=== PATIENT | female | born 1960 | race Caucasian/White ===

== ENCOUNTER 2020-07-09 08:00 | Outpatient (CLI) | payer SELFPAY | END 2020-07-09 23:59 | disposition home or self-care (01) | LOC: LAB.S 08:00 | PROVIDERS: ATTEND Physician Assistant Medical | DX: L03.115 Cellulitis of right lower limb (principal) | CPT/HCPCS: 87070; 87181; 87205 ==

== ENCOUNTER 2020-07-13 08:00 | Outpatient (CLI) | payer SELFPAY ==
--- NOTE | 2020-07-13 17:15 | XRAY Report ---
PROCEDURE: Chest 2 View X-Ray INDICATIONS: COUGH TECHNIQUE: 2 view(s) of the chest. COMPARISON: None. FINDINGS: Surgical changes and devices: None. Lungs and pleura: No pleural effusions or pneumothorax. Lungs are clear. Mediastinum: Mediastinal contours are normal. Heart size is at the upper limits of size. Bones and chest wall: No suspicious bony abnormalities. Soft tissues appear unremarkable. IMPRESSION: No acute pulmonary process. Reviewed by: Luana Brady MD on 07/13/2020 5:13 PM PDT Approved by: Luana Brady MD on 07/13/2020 5:13 PM PDT Station ID: [id number]
[2020-07-13 20:22] LABS: BASOPHILS # (AUTO) 0.1 10^3/uL (0.0-0.1); BASOPHILS % (AUTO) 0.7 %; EOSINOPHILS # (AUTO) 0.1 10^3/uL (0.0-0.7); HCT - HEMATOCRIT 44.5 % (37.0-47.0); HGB - HEMOGLOBIN 13.9 g/dL (12.0-16.0); LYMPHOCYTES # (AUTO) 2.5 10^3/uL (1.5-3.5); LYMPHOCYTES % (AUTO) 20.9 %; MEAN CORPUSCULAR HEMOGLOBIN 28.3 pg (27.0-31.0); MEAN CORPUSCULAR HGB CONC 31.2 g/dL (32.0-36.0); MEAN CORPUSCULAR VOLUME 90.6 fL (81.0-99.0); MEAN PLATELET VOLUME 12.7 fL (7.9-10.8); MONOCYTES # (AUTO) 1.1 10^3/uL (0.0-1.0); MONOCYTES % (AUTO) 9.1 %; NEUTROPHILS # (AUTO) 8.1 10^3/uL (1.5-6.6); NEUTROPHILS % (AUTO) 67.6 %; PLT - PLATELET COUNT 307 10^3/uL (130-450); RED BLOOD COUNT 4.91 10^6/uL (4.20-5.40); RED CELL DISTRIBUTION WIDTH 14.6 % (12.0-15.0); WHITE BLOOD COUNT 11.9 x10^3/uL (4.8-10.8)
[2020-07-13 20:34] LABS: ALBUMIN 4.4 g/dL (3.2-5.5); ALBUMIN/GLOBULIN RATIO 1.2 (1.0-2.2); BILIRUBIN,TOTAL 0.6 mg/dL (0.2-1.0); CALCIUM 9.1 mg/dL (8.5-10.3); CREATININE 1.2 mg/dL (0.4-1.0); POTASSIUM 4.7 mmol/L (3.5-5.0)
== END 2020-07-13 23:59 | disposition home or self-care (01) ==
LOC: DI.S 08:00
PROVIDERS: ATTEND Physician Assistant Medical
DX: R05 Cough (principal); R09.89 Other specified symptoms and signs involving the circulatory and respiratory systems; R11.2 Nausea with vomiting, unspecified; Z20.822 Contact with and (suspected) exposure to COVID-19
CPT/HCPCS: 36415; 80053; 85025; 87275; 87276; 87430

== ENCOUNTER 2020-07-14 13:32 | Emergency (ER) | payer SELFPAY ==
--- OUTSIDE RECORDS SUMMARY | 2020-07-14 13:35 | EXTERNAL MEDICAL SUMMARY RPT | Continuity of Care Document ---
:1960 Demographics Phone Unavailable Preferred Language Unknown Marital Status Unknown Taoism Affiliation Unknown Race Unknown Ethnic Group Unknown Author Organization [place] Address [address] [id number] Phone Care Team Providers Name Role Phone Dedrick Unavailable Unavailable PA-C Unavailable Unavailable PA-C Unavailable Unavailable Medications date description facility [id number] [facility] [id number] [facility] [id number] [facility] [id number] [facility] [id number] METFORMIN [facility] [id number] [facility] [id number] SULFAMETHOXAZOLE-TRIMETHOPRIM [facility] [id number] TRIAMCINOLONE ACETONIDE [facility] [id number] MUPIROCIN [facility] [id number] SULFAMETHOXAZOLE-TRIMETHOPRIM [facility] [id number] METFORMIN HCL [facility] [id number] TRIAMCINOLONE ACETONIDE [facility] L[facility] [id number] L[facility]OPRIL [facility] [id number] M[facility]IROCIN [facility] [id number] METFORMIN HCL [facility] [id number] [facility]INOPRIL [facility] [id number] SULFAMETHOXAZOLE-TRIMETHOPRIM [facility] [id number] TRIAMCINOLONE ACETONIDE [facility] [id number] MUPIROCIN [facility] [id number] SULFAMETHOXAZOLE-TRIMETHOPRIM [facility] [id number] METFORMIN HCL [facility] [id number] TRIAMCINOLONE ACETONIDE [facility] [id number] L[facility]INOPRIL [facility] Care & Ancillary Services Bl [id number] MUPIROCIN [facility] & Anc[facility] Services L[facility] [id number] METFORMIN HCL [facility] L[facility] [id number] LISINOPRIL [facility] & Anc[facility] Services Bl [id number] SULFAMETHOXAZOLE-TRIMETHOPRIM [facility] [id number] TRIAMCINOLONE ACETONIDE [facility] [id number] MUPIROCIN [facility] & Anc[facility] Services L[place] [id number] SULFAMETHOXAZOLE-TRIMETHOPRIM [facility] & Ancillary Services Lb [id number] METFORMIN HCL [facility] Care & Ancillary Services Lb [id number] TRIAMCINOLONE ACETONIDE [facility] [id number] LISINOPRIL [facility] Care & Ancillary Services Lb [id number] MUPIROCIN [facility] Services Lb Problems date description facility [id number] X-RAY EXAM CHEST 2 VIEWS [facility] Services [facility] [id number] Viral syndrome [facility] [place] [id number] Tobacco use and exposure [facility] [place] [id number] Tobacco smoking status NHIS Walk[facility]In [facility] Primary Care & [facility]illary Services [place] [id number] Respiratory tract congestion Walk-In [facility] Primary Care & Ancillary Services [facility] [id number] Other viral agents as the cause of [facility] Primary Care & diseases classified elsewhere Ancillary Services L[facility] [id number] Other diseases of respiratory system, [facility] Primary Care & not elsewhere classified Ancillary Servi caty Lb [id number] Nausea with vomiting, unspecified [facility] [place] [id number] Influenza A & B Antigen, Rapid [facility] [place] [id number] Exercise [facility] Care & [facility] [place] [id number] Details of drug misuse behavior [facility] Services [place] 20200713 Cough [facility] [place] 20200713 COVID19 Testing [facility] [place] 20200713 COMPREHENSIVE METABOLIC PANEL [facility] [place] 20200713 CBC W/Diff/Plt [facility] Care & [facility] Services [place] 20200713 Unspecified viral infection Walk[facility] in Primary Care & Ancillary Services [place] 20200713 Other specified symptoms and signs [facility] Primary Care & involving the circulatory and Ancillary Services Lb respiratory systems 20200713 Nausea with vomiting [facility] Care & Ancillary Services [place] 20200713 Nausea and vomiting [facility] Care & Ancillary Services [place] 20200713 Current every day smoker [facility] Care & Ancillary Services [place] 20200713 Alcohol use [facility] Care [facility] Services [place] 20200713 Alcohol intake [facility] [place] [id number] Tobacco use disorder [facility] Care & Ancillary Services [place] 20200709 Nicotine dependence [facility] Care & Ancillary Services [place] 20200709 Current every day smoker [facility] Primary Care & Ancillary Services [place] [id number] Chronic eczema [facility] Services [place] 20200709 Tobacco use and exposure [facility] [place] [id number] Exercise [facility] Care & Anc[facility] Services [place] 20200709 Tobacco smoking status NHIS Walk[facility] Primary Care & Ancillary Services [place] 20200709 Other atopic dermatitis [facility] & [facility] Services [place] 20200709 Nicotine dependence, unspecified, [facility] Primary Care & uncomplicated Ancillary Services [place] 20200709 Cellulitis of right lower limb [facility] [place] 20200709 CULTURE WOUND [facility] Care & Ancillary Services [place] Procedures date description facility 20200713 Influenza A & B Antigen, Rapid [facility] 20200713 COVID19 Testing [facility] Care & Anc[facility] Services L[facility] 20200713 CBC W/Diff/Plt Walk[facility]In [facility] & Ancillary Services Lb [id number] COMPREHENSIVE METABOLIC PANEL Walk-In [facility] Primary Care & Ancillary Services Lb [id number] Influenza A & B Antigen, Rapid Walk[facility]In [facility] Primary Care & Ancillary Services L[place] [id number] COVID19 Testing Walk[facility]In [facility] & Ancillary Services L[place] [id number] CBC W/Diff/Plt Walk[facility] & Ancillary Services Lb [id number] COMPREHENSIVE METABOLIC PANEL Walk-In [facility] Primary Care & Ancillary Services Lb Results test status date ordered by attending specimen len e urea_nitrogen_blood unknown [id number] unknown unknown unk nown Erythrocytes_volume_in unknown 23235009 unknown unknown unknown _Blood_by_Automated_cou nt Erythrocyte_distributi unknown 53365063 unknown unknown unknown on_width_Ratio_by_Autom ated_count MCV_Entitic_volume_by_ unknown 56332362 unknown unknown unknown Automated_count MCH_Entitic_mass_by_Au unknown 50031484 unknown unknown unknown tomated_count Platelets_volume_in_Bl unknown 16626972 unknown unknown unknown ood_by_Automated_count Platelet_mean_volume_E unknown 85105914 unknown unknown unknown ntitic_volume_in_Blood_ by_[place] neutrophil_count_blood unknown 20999035 unknown unknown unknown monocyte_count_blood unknown 15427435 unknown unknown un known lymphocyte_count_blood unknown 64545385 unknown unknown unknown Hemoglobin_Mass_volume unknown 34570958 unknown unknown unknown _in_Blood eosinophil_count_blood unknown 50263705 unknown unknown unknown Basophils_volume_in_Bl unknown 84697123 unknown unknown unknown ood_by_Manual_count leukocyte_count_blood unknown 62320242 unknown unknown u nknown erythrocyte_RBC_count unknown 19886002 unknown unknown u nknown Leukocytes_volume_in_B unknown 05805097 unknown unknown unknown lood_by_Automated_count Glomerular_Filtration_ unknown 26232076 unknown unknown unknown rate platelet_count unknown 05922622 unknown unknown unknown hemoglobin_blood unknown 62446516 unknown unknown unknow n hematocrit_blood unknown 09857985 unknown unknown unknow n potassium_blood unknown 36411994 unknown unknown unknown Glomerular_filtration_r unknown 23685059 unknown unknown unknown ate_1.73_sq_M.predicted _among_non-blacks_Volum e_Rate_Area_in_Serum_Pl asma_or_Blood_by_Creati nine-based_formula_MDRD _ Hematocrit_Volume_Frac unknown 50373708 unknown unknown unknown tion_of_Blood_by_Automa ted_count bilirubin_serum_total unknown 43620322 unknown unknown u nknown alanine_aminotransfera unknown 67777432 unknown unknown unknown se_SGPT_serum carbon_dioxide_serum_t unknown 69250578 unknown unknown unknown otal aspartate_aminotransfe unknown 52946254 unknown unknown unknown rase_SGOT_serum protein_total_serum unknown 51984715 unknown unknown unk nown blood_glucose unknown 85706380 unknown unknown unknown potassium_blood unknown 01844671 unknown unknown unknown mean_corpuscular_volum unknown 61382592 unknown unknown unknown e_RBC Urea_nitrogen_Mass_vol unknown 40037181 unknown unknown unknown ume_in_Serum_or_Plasma globulin_serum unknown 18167728 unknown unknown unknown alkaline_phosphatase_s unknown 92635427 unknown unknown unknown oc Sodium_Moles_volume_in unknown 40883366 unknown unknown unknown _Serum_or_Plasma Protein_Mass_volume_in unknown 94332768 unknown unknown unknown _Serum_or_Plasma eosinophil_count_blood unknown 09870721 unknown unknown unknown anion_gap_serum unknown 55657909 unknown unknown unknown mean_platelet_volume unknown 52517716 unknown unknown un known basophil_count_blood unknown 27494515 unknown unknown un known monocyte_count_blood unknown 69058002 unknown unknown un known lymphocyte_count_blood unknown 52473736 unknown unknown unknown neutrophil_count_blood unknown 45761461 unknown unknown unknown Glucose_Mass_volume_in unknown 51641055 unknown unknown unknown _Serum_or_Plasma Globulin_Mass_volume_i unknown 20592581 unknown unknown unknown n_Serum Creatinine_Mass_volume unknown 93899362 unknown unknown unknown _in_Serum_or_Plasma Chloride_Moles_volume_ unknown 40755715 unknown unknown unknown in_Serum_or_Plasma carbon_dioxide_serum_t unknown 10698466 unknown unknown unknown otal Calcium_Moles_volume_i unknown 17025130 unknown unknown unknown n_Serum_or_Plasma albumin_serum unknown 60463158 unknown unknown unknown Bilirubin.total_Mass_v unknown 26077847 unknown unknown unknown olume_in_Serum_or_Plasm a Aspartate_aminotransfe unknown 73333238 unknown unknown unknown rase_Enzymatic_activity _volume_in_Serum_or_Pla sma Anion_gap_4_in_Serum_o unknown 34236827 unknown unknown unknown r_Plasma creatinine_serum unknown 78984213 unknown unknown unknow n Alkaline_phosphatase_E unknown 34424777 unknown unknown unknown nzymatic_activity_volum e_in_Blood Albumin_Globulin_Mass_ unknown 59343659 unknown unknown unknown Ratio_in_Serum_or_Plasm a Albumin_Mass_volume_in unknown 17139561 unknown unknown unknown _Serum_or_Plasma Alanine_aminotransfera unknown 01404873 unknown unknown unknown se_Enzymatic_activity_v olume_in_Serum_or_Plasm a mean_corpuscular_hemog unknown 48666774 unknown unknown unknown lobin_concentration_rbc sodium_serum unknown 86507530 unknown unknown unknown albumin_globulin_ratio unknown 92248397 unknown unknown unknown _serum chloride_serum unknown 97267921 unknown unknown unknown calcium_serum unknown 88389531 unknown unknown unknown mean_corpuscular_hemog unknown 97707241 unknown unknown unknown lobin_RBC red_blood_cell_distrib unknown 09720814 unknown unknown unknown ution_width T unknown 28571091 unknown unknown unknown T unknown 00209774 unknown unknown unknown T unknown 63719565 unknown unknown unknown T unknown 04730786 unknown unknown unknown T unknown 01422250 unknown unknown unknown T unknown 90775498 unknown unknown unknown NEUTROPHILS_AUTO_ unknown 97883365 unknown unknown unkno wn T unknown 34324650 unknown unknown unknown T unknown 95684351 unknown unknown unknown T unknown 98882862 unknown unknown unknown MONOCYTES_AUTO_ unknown 73335856 unknown unknown unknown T unknown 77657652 unknown unknown unknown T unknown 93317748 unknown unknown unknown T unknown 58921058 unknown unknown unknown T unknown 48285377 unknown unknown unknown LYMPHOCYTES_AUTO_ unknown 75666780 unknown unknown unkno wn T unknown 30387805 unknown unknown unknown T unknown 43305708 unknown unknown unknown T unknown 02601583 unknown unknown unknown T unknown 47503632 unknown unknown unknown T unknown 34043523 unknown unknown unknown T unknown 68965047 unknown unknown unknown T unknown 19302865 unknown unknown unknown GFR_-_MDRD unknown 51000757 unknown unknown unknown T unknown 26021943 unknown unknown unknown EOSINOPHILS_AUTO_ unknown 12458744 unknown unknown unkno wn T unknown 83197201 unknown unknown unknown T unknown 29211228 unknown unknown unknown T unknown 09006520 unknown unknown unknown T unknown 66009927 unknown unknown unknown T unknown 29064223 unknown unknown unknown T unknown 20752193 unknown unknown unknown BILIRUBIN_TOTAL unknown 38924036 unknown unknown unknown BASOPHILS_AUTO_ unknown 60198611 unknown unknown unknown T unknown 53531234 unknown unknown unknown T unknown 52521596 unknown unknown unknown T unknown 91841138 unknown unknown unknown T unknown 79839737 unknown unknown unknown ALT_ALANINE_AMINOTRANS unknown 92211364 unknown unknown unknown FERASE ALKALINE_PHOSPHATASE unknown 05583259 unknown unknown un known T unknown 30983777 unknown unknown unknown T unknown 04991632 unknown unknown unknown ALBUMIN_GLOBULIN_RATIO unknown 72576778 unknown unknown unknown facility observation status value reference units lab code abn ormal line range notes [facility] urea_nitroge unknown 29 unknown mg/dL _9 unknow n unknown Clinic n_blood Primary Care & Ancillary Services Lb [facility] Erythrocytes unknown 4.91 unknown _789-8 unknow n unknown Clinic _volume_in_Bl 10 6/UL Primary ood_by_Automa Care & ted_count Ancillary Services Lb Walk-In Erythrocyte_ unknown 14.6 unknown % _788-0 unknow n unknown Clinic distribution_ Primary width_Ratio_b Care & y_Automated_c Ancillary ount Services Lb Walk-In MCV_Entitic_ unknown 90.6 unknown fL _787-2 unknow n unknown Clinic volume_by_Aut Primary omated_count Care & Ancillary Services Lb Walk-In MCH_Entitic_ unknown 28.3 unknown pg _785-6 unknow n unknown Clinic mass_by_Autom Primary ated_count Care & Ancillary Services Lb [facility] Platelets_vo unknown 307 10 unknown _777-3 unknow n unknown Clinic lume_in_Blood 3/UL Primary _by_Automated Care & _count Ancillary Services Lb Walk-In Platelet_mea unknown 12.7 unknown fL _776-5 unknow n unknown Clinic n_volume_Enti Primary tic_volume_in Care & _Blood_by_Ree Ancillary s-[place] Services Lb Walk-In neutrophil_c unknown 8.1 10 unknown _752-6 unknow n unknown Clinic ount_blood 3/UL Primary Care & Ancillary Services Lb Walk-In monocyte_cou unknown 1.1 10 unknown _743-5 unknow n unknown Clinic nt_blood 3/UL Primary Care & Ancillary Services Lb Walk-In lymphocyte_c unknown 2.5 10 unknown _732-8 unknow n unknown Clinic ount_blood 3/UL Primary Care & Ancillary Services Lb Walk-In Hemoglobin_M unknown 13.9 unknown g/dL _718-7 unknow n unknown Clinic ass_volume_in Primary _Blood Care & Ancillary Services Lb Walk-In eosinophil_c unknown 0.1 10 unknown _712-0 unknow n unknown Clinic ount_blood 3/UL Primary Care & Ancillary Services Lb Walk-In Basophils_vo unknown 0.1 10 unknown _705-4 unknow n unknown Clinic lume_in_Blood 3/UL Primary _by_Manual_co Care & unt Ancillary Services Lb Walk-In leukocyte_co unknown 11.9 unknown _68 unknow n unknown Clinic unt_blood X10 Primary 3/UL Care & Ancillary Services Lb Walk-In erythrocyte_ unknown 4.91 unknown _67 unknow n unknown Clinic RBC_count 10 6/UL Primary Care & Ancillary Services Lb Walk-In Leukocytes_v unknown 11.9 unknown _6690-2 unkno wn unknown Clinic olume_in_Bloo X10 Primary d_by_Automate 3/UL Care & d_count Ancillary Services Lb Walk-In Glomerular_F unknown 46 unknown mL/min _66455 unknow n unknown Clinic iltration_rat Primary e Care & Ancillary Services Lb Walk-In platelet_cou unknown 307 10 unknown _66 unknow n unknown Clinic nt 3/UL Primary Care & Ancillary Services Lb Walk-In hemoglobin_b unknown 13.9 unknown g/dL _65 unknow n unknown Clinic lood Primary Care & Ancillary Services Lb Walk-In hematocrit_b unknown 44.5 unknown % _64 unknow n unknown Clinic lood Primary Care & Ancillary Services Lb Walk-In potassium_bl unknown 4.7 unknown meq/L _6298-4 unkno wn unknown Clinic ood Primary Care & Ancillary Services Lb Walk-In Glomerular_fi unknown 46 unknown mL/min _48642-3 unkn own unknown Clinic ltration_rate Primary _1.73_sq_M.pr Care & edicted_among Ancillary _non-blacks_V Services olume_Rate_Ar Bl ea_in_Serum_P lasma_or_Bloo d_by_Creatini ne-based_form ula_MDRD_ Walk-In Hematocrit_V unknown 44.5 unknown % _4544-3 unkno wn unknown Clinic olume_Fractio Primary n_of_Blood_by Care & _Automated_co Ancillary unt Services Lb Walk-In bilirubin_se unknown 0.6 unknown mg/dL _43 unknow n unknown Clinic rum_total Primary Care & Ancillary Services Lb Walk-In alanine_amin unknown 21 unknown U/L _40 unknow n unknown Clinic otransferase_ Primary SGPT_serum Care & Ancillary Services Lb Walk-In carbon_dioxi unknown 24 unknown mmol/L _3962 unknow n unknown Clinic de_serum_tota Primary l Care & Ancillary Services Lb Walk-In aspartate_am unknown 22 unknown U/L _39 unknow n unknown Clinic inotransferas Primary e_SGOT_serum Care & Ancillary Services Lb Walk-In protein_tota unknown 8.0 unknown g/dL _36 unknow n unknown Clinic l_serum Primary Care & Ancillary Services Lb Walk-In blood_glucos unknown 84 unknown mg/dL _3565 unknow n unknown Clinic e Primary Care & Ancillary Services Lb Walk-In potassium_bl unknown 4.7 unknown meq/L _3483 unknow n unknown Clinic ood Primary Care & Ancillary Services Lb Walk-[facility] mean_corpusc unknown 90.6 unknown fL _315 unknow n unknown Clinic ular_volume_R Primary BC Care & Ancillary Services Lb Walk-In Urea_nitroge unknown 29 unknown mg/dL _3094-0 unkno wn unknown Clinic n_Mass_volume Primary _in_Serum_or_ Care & Plasma Ancillary Services Lb Walk-In globulin_ser unknown 3.6 unknown _3059 unknow n unknown Clinic um Primary Care & Ancillary Services Lb Walk-In alkaline_pho unknown 68 unknown U/L _3 unknow n unknown Clinic sphatase_seru Primary m Care & Ancillary Services Lb Walk-In Sodium_Moles unknown 134 unknown mmol/L _2951-2 unkno wn unknown Clinic _volume_in_Se Primary rum_or_Plasma Care & Ancillary Services Lb Walk-In Protein_Mass unknown 8.0 unknown g/dL _2885-2 unkno wn unknown Clinic _volume_in_Se Primary rum_or_Plasma Care & Ancillary Services Lb Walk-In eosinophil_c unknown 0.1 10 unknown _285 unknow n unknown Clinic ount_blood 3/UL Primary Care & Ancillary Services Lb Walk-In anion_gap_se unknown 9.0 unknown _279 unknow n unknown Clinic rum Primary Care & Ancillary Services Lb Walk-In mean_platele unknown 12.7 unknown fL _2784 unknow n unknown Clinic t_volume Primary Care & Ancillary Services Lb Walk-In basophil_cou unknown 0.1 10 unknown _2427 unknow n unknown Clinic nt_blood 3/UL Primary Care & Ancillary Services Lb Walk-In monocyte_cou unknown 1.1 10 unknown _2422 unknow n unknown Clinic nt_blood 3/UL Primary Care & Ancillary Services Lb Walk-In lymphocyte_c unknown 2.5 10 unknown _2420 unknow n unknown Clinic ount_blood 3/UL Primary Care & Ancillary Services Lb Walk-In neutrophil_c unknown 8.1 10 unknown _2418 unknow n unknown Clinic ount_blood 3/UL Primary Care & Ancillary Services Lb Walk-In Glucose_Mass unknown 84 unknown mg/dL _2345-7 unkno wn unknown Clinic _volume_in_Se Primary rum_or_Plasma Care & Ancillary Services Lb Walk-In Globulin_Mas unknown 3.6 unknown _2336-6 unkno wn unknown Clinic s_volume_in_S Primary oc Care & Ancillary Services Lb Walk-In Creatinine_M unknown 1.2 unknown mg/dL _2160-0 unkno wn unknown Clinic ass_volume_in Primary _Serum_or_Pla Care & sma Ancillary Services Lb Walk-In Chloride_Mol unknown 101 unknown mmol/L _2074-0 unkno wn unknown Clinic es_volume_in_ Primary Serum_or_Plas Care & ma Ancillary Services Lb Walk-In carbon_dioxi unknown 24 unknown mmol/L _2027- unkno wn unknown Clinic de_serum_tota Primary l Care & Ancillary Services Lb Walk-In Calcium_Mole unknown 9.1 unknown mg/dL _1999- unkno wn unknown Clinic s_volume_in_S Primary erum_or_Plasm Care & a Ancillary Services Lb Walk-In albumin_seru unknown 4.4 unknown g/dL _2 unknow n unknown Clinic m Primary Care & Ancillary Services Lb Walk-In Bilirubin.to unknown 0.6 unknown mg/dL _1974-2 unkno wn unknown Clinic tal_Mass_volu Primary me_in_Serum_o Care & r_Plasma Ancillary Services Lb Walk-In Aspartate_am unknown 22 unknown U/L _1920-8 unkno wn unknown Clinic inotransferas Primary e_Enzymatic_a Care & ctivity_volum Ancillary e_in_Serum_or Services _Plasma Lb Walk-In Anion_gap_4_ unknown 9.0 unknown _1863-0 unkno wn unknown Clinic in_Serum_or_P Primary lasma Care & Ancillary Services Lb Walk-In creatinine_s unknown 1.2 unknown mg/dL _18 unknow n unknown Clinic oc Primary Care & Ancillary Services Lb Walk-In Alkaline_pho unknown 68 unknown U/L _1783-0 unkno wn unknown Clinic sphatase_Enzy Primary matic_activit Care & y_volume_in_B Ancillary lood Services Lb Walk-In Albumin_Glob unknown 1.2 unknown _1759-0 unkno wn unknown Clinic ulin_Mass_Rat Primary io_in_Serum_o Care & r_Plasma Ancillary Services Lb Walk-In Albumin_Mass unknown 4.4 unknown g/dL _1751-7 unkno wn unknown Clinic _volume_in_Se Primary rum_or_Plasma Care & Ancillary Services Lb Walk-In Alanine_amin unknown 21 unknown U/L _1742-6 unkno wn unknown Clinic otransferase_ Primary Enzymatic_act Care & ivity_volume_ Ancillary in_Serum_or_P Services lasma Lb Walk-In mean_corpusc unknown 31.2 unknown g/dL _17029 unknow n unknown Clinic ular_hemoglob Primary in_concentrat Care & ion_rbc Ancillary Services Lb Walk-In sodium_serum unknown 134 unknown mmol/L _159 unknow n unknown Clinic Primary Care & Ancillary Services Lb Walk-In albumin_glob unknown 1.2 unknown _146 unknow n unknown Clinic ulin_ratio_se Primary rum Care & Ancillary Services Lb Walk-In chloride_ser unknown 101 unknown mmol/L _13 unknow n unknown Clinic um Primary Care & Ancillary Services Lb Walk-In calcium_seru unknown 9.1 unknown mg/dL _11 unknow n unknown Clinic m Primary Care & Ancillary Services Lb Walk-In mean_corpusc unknown 28.3 unknown pg _1031 unknow n unknown Clinic ular_hemoglob Primary in_RBC Care & Ancillary Services Lb Walk-In red_blood_ce unknown 14.6 unknown % _1030 unknow n unknown Clinic ll_distributi Primary on_width Care & Ancillary Services Lb Walk-In T unknown 11.9 unknown WBC unknown [facility] X10 Primary 3/UL Care & Ancillary Services Lb Walk-In T unknown 0.6 unknown mg/dL TOTAL_BI unknown [facility] Lb Walk-In T unknown 14.6 unknown % RDW unknown [facility] Walk-In T unknown 4.91 unknown RBC unknown [facility] 10 6/UL [facility] Lb Walk-In T unknown 8.0 unknown g/dL PRO_TOTA unknown [facility] Walk-In T unknown 307 10 unknown PLT unknown [facility] 3/UL [facility] Lb Walk-In NEUTROPHILS_ unknown 8.1 10 unknown NE_ unknow n unknown Clinic AUTO_ 3/UL [facility] Lb Walk-In T unknown 8.1 10 unknown NEUT_AUT unknown [facility] 3/UL O_ [facility] Lb Walk-In T unknown 134 unknown mmol/L NA unknown [facility] Walk-In T unknown 12.7 unknown fL MPV unknown [facility] Walk-In MONOCYTES_AU unknown 1.1 10 unknown MO_ unknow n unknown Clinic TO_ 3/UL [facility] Lb Walk-In T unknown 1.1 10 unknown MONO_AUT unknown [facility] 3/UL O_ [facility] Lb Walk-In T unknown 90.6 unknown fL MCV unknown [facility] Walk-In T unknown 31.2 unknown g/dL MCHC unknown [facility]b Walk-In T unknown 28.3 unknown pg MCH unknown [facility]b Walk-In LYMPHOCYTES_ unknown 2.5 10 unknown LY_ unknow n unknown Clinic AUTO_ 3/UL [facility] Lb Walk-In T unknown 2.5 10 unknown LYMPH_AU unknown [facility] 3/UL TO_ [facility] Lb Walk-In T unknown 4.7 unknown meq/L K unknown [facility] Walk-In T unknown 13.9 unknown g/dL HGB unknown [facility]b Walk-In T unknown 44.5 unknown % HCT unknown [facility] Walk-In T unknown 84 unknown mg/dL GLU unknown [facility] Walk-In T unknown 3.6 unknown GLOB unknown [facility] Walk-In T unknown 46 unknown mL/min GFR_-_MD unknown [facility] Lb Walk-In GFR_-_MDRD unknown 46 unknown mL/min GFR unknown unknown [facility] Walk-In T unknown 9.0 unknown GAP unknown [facility] Lb Walk-In EOSINOPHILS_ unknown 0.1 10 unknown EO_ unknow n unknown Clinic AUTO_ 3/UL [facility] Lb Walk-In T unknown 0.1 10 unknown EOS_AUTO unknown [facility] 3/UL _ [facility] Lb Walk-In T unknown 1.2 unknown mg/dL CREAT unknown [facility] Walk-In T unknown 24 unknown mmol/L CO2 unknown [facility] Walk-In T unknown 101 unknown mmol/L CL unknown [facility] Walk-In T unknown 9.1 unknown mg/dL CA unknown [facility] Walk-In T unknown 29 unknown mg/dL BUN unknown [facility] Walk-In BILIRUBIN_TO unknown 0.6 unknown mg/dL BILIT unknow n unknown Clinic [facility] Lb Walk-In BASOPHILS_AU unknown 0.1 10 unknown BA_ unknow n unknown Clinic TO_ 3/UL [facility] Lb Walk-In T unknown 0.1 10 unknown BASO_AUT unknown [facility] 3/UL O_ [facility] Lb Walk-In T unknown 1.2 unknown A_G_RATI unknown [facility]b Walk-In T unknown 22 unknown U/L AST unknown [facility] Lb Walk-In T unknown 21 unknown U/L ALT_SGPT unknown u [facility] _ [facility] Lb Walk-In ALT_ALANINE_ unknown 21 unknown U/L ALT unknow n unknown Clinic AMINOTRANSFER Primary A[facility] Lb Walk-In ALKALINE_PHO unknown 68 unknown U/L ALP unknow n unknown Clinic SPHATASE [facility] Lb Walk-In T unknown 68 unknown U/L ALK_PHOS unknown [facility] Walk-In T unknown 4.4 unknown g/dL ALB unknown [facility] Lb Walk-In ALBUMIN_GLOB unknown 1.2 unknown AGRATIO unkno wn unknown Clinic ULIN_RATIO [facility] Lb Vital Signs date measurement value source 20200709 weight_standard 236.6 lb 20200709 weight_metric 107.32 kg 20200709 temperature_standard 97 F 20200709 temperature_metric 36.11 C 20200709 respiration_rate 14 /min 20200709 height_standard 65.25 in 20200709 height_metric 165.74 cm 20200709 heart_rate 81 /min 20200709 BP_systolic 111 mm[Hg] 20200709 BP_diastolic 79 mm[Hg] 20200709 BMI 39.21 kg/m2 20200709 weight_standard 236.6 lb 20200709 weight_metric 107.32 kg 20200709 temperature_standard 97 F 20200709 temperature_metric 36.11 C 20200709 respiration_rate 14 /min 20200709 height_standard 65.25 in 20200709 height_metric 165.74 cm 20200709 heart_rate 81 /min 20200709 BP_systolic 111 mm[Hg] 20200709 BP_diastolic 79 mm[Hg] 20200709 BMI 39.21 kg/m2 20200709 weight_standard 236.6 lb 20200709 weight_metric 107.32 kg 20200709 temperature_standard 97 F 20200709 temperature_metric 36.11 C 20200709 respiration_rate 14 /min 20200709 height_standard 65.25 in 20200709 height_metric 165.74 cm 20200709 heart_rate 81 /min 20200709 BP_systolic 111 mm[Hg] 20200709 BP_diastolic 79 mm[Hg] 20200709 BMI 39.21 kg/m2 20200713 temperature_standard 98 F 20200713 temperature_metric 36.67 C 20200713 respiration_rate 16 /min 20200713 height_standard 65.25 in 20200713 height_metric 165.74 cm 20200713 heart_rate 78 /min 20200713 BP_systolic 108 mm[Hg] 20200713 BP_diastolic 73 mm[Hg] 20200713 temperature_standard 98 F 20200713 temperature_metric 36.67 C 20200713 respiration_rate 16 /min 20200713 height_standard 65.25 in 20200713 height_metric 165.74 cm 20200713 heart_rate 78 /min 20200713 BP_systolic 108 mm[Hg] 20200713 BP_diastolic 73 mm[Hg]
--- OUTSIDE RECORDS SUMMARY | 2020-07-14 13:39 | EXTERNAL MEDICAL SUMMARY RPT | Continuity of Care Document ---
:1960 Demographics Phone Unavailable Preferred Language Unknown Marital Status Unknown Gnosticism Affiliation Unknown Race Unknown Ethnic Group Unknown Author Organization [place] Address [address] [phone] Phone Care Team Providers Name Role Phone PA-C Unavailable Unavailable Dedrick Unavailable Unavailable PA-C Unavailable Unavailable Medications date description facility [id number] [facility] [id number] [facility] [id number] [facility] [id number] [facility] [id number] [facility] [id number] [facility] [id number] SULFAMETHOXAZOLE-TRIMETHOPRIM [facility] [id number] TRIAMCINOLONE ACETONIDE [facility] [id number] [facility] [id number] SULFAMETHOXAZOLE-TRIMETHOPRIM [facility] [id number] MET[facility]MIN [facility] [id number] TRIAMCINOLONE ACETONIDE [facility] [id number] [facility] [id number] [facility] [id number] METFORMIN [facility] Bl [id number] [facility] [id number] SULFAMETHOXAZOLE-TRIMETHOPRIM [facility] [id number] TRIAMCINOLONE ACETONIDE [facility] [id number] MUPIROCIN [facility] [id number] SULFAMETHOXAZOLE-TRIMETHOPRIM [facility] [id number] METFORMIN [facility]CL [facility] [id number] TRIAMCINOLONE ACETONIDE [facility] [id number] L[facility]INOPRIL [facility] L[facility] [id number] MUPIROCIN [facility] Lb [id number] METFORMIN HCL [facility] Lb [id number] LISINOPRIL [facility] Lb [id number] SULFAMETHOXAZOLE-TRIMETHOPRIM [facility] L[facility] [id number] TRIAMCINOLONE ACETONIDE [facility] [id number] MUPIROCIN [facility] [id number] SULFAMETHOXAZOLE-TRIMETHOPRIM [facility] [id number] METFORMIN HCL [facility] [id number] TRIAMCINOLONE ACETONIDE [facility] [id number] L[facility]INOPRIL [facility] [id number] MUPIROCIN [facility] Problems date description facility [id number] X-RAY EXAM CHEST 2 VIEWS [facility] [id number] Viral syndrome [facility] [place] [id number] Tobacco use and exposure [facility] [place] [id number] Tobacco smoking status NHIS [facility] Primary Care & Ancillary Services C [place]all [id number] Respiratory tract congestion [facility] [id number] Other viral agents as the cause of [facility] Primary Care & diseases classified elsewhere Ancillary Services Lb [id number] Other diseases of respiratory system, [facility] Care & not elsewhere classified Ancillary Servi caty Lb [id number] Nausea with vomiting, unspecified [facility] [place] [id number] Influenza A & B Antigen, Rapid [facility] [place] [id number] Exercise [facility] C marshall [id number] Details of drug misuse behavior [facility] rosalind 20200713 Cough [facility] C rosalind 20200713 COVID19 Testing [facility] C rosalind 20200713 COMPREHENSIVE METABOLIC PANEL [facility] [place] 20200713 CBC W/Diff/Plt [facility] C rosalind 20200713 Unspecified viral infection [facility] Services C rosalind 20200713 Other specified symptoms and signs [facility] & involving the circulatory and Ancillary Services Lb respiratory systems 20200713 Nausea with vomiting [facility] C rosalind 20200713 Nausea and vomiting [facility] C rosalind 20200713 Current every day smoker [facility] Services C rosalind 20200713 Alcohol use [facility] C rosalind 20200713 Alcohol intake [facility] C rosalind [id number] Tobacco use disorder [facility] C rosalind [id number] Nicotine dependence [facility] Care [facility]illary Services C rosalind 20200709 Current every day smoker [facility] & Ancillary Services C rosalind [id number] Chronic eczema [facility] Services C rosalind 20200709 Tobacco use and exposure [facility] Services C rosalind 20200709 Exercise [facility] Services C rosalind 20200709 Tobacco smoking status NHIS [facility] Primary Care & Ancillary Services C rosalind 20200709 Other atopic dermatitis [facility] Services C rosalind 20200709 Nicotine dependence, unspecified, [facility] Care & uncomplicated Ancillary Services C rosalind 20200709 Cellulitis of right lower limb [facility] C rosalind 20200709 CULTURE WOUND [facility] Care [facility] Anc[facility] Services C rosalind Procedures date description facility 20200713 Influenza A & B Antigen, Rapid [facility] 20200713 COVID19 Testing [facility] 20200713 CBC W/Diff/Plt [facility] & Ancillary Services Lb [id number] COMPREHENSIVE METABOLIC PANEL [facility] Primary Care & Ancillary Services Lb [id number] Influenza A & B Antigen, Rapid [facility] Services L[facility] [id number] COVID19 Testing [facility] & [facility] Services Lb [id number] CBC W/Diff/Plt [facility] & Ancillary Services Lb [id number] COMPREHENSIVE METABOLIC PANEL [facility] & [facility] Services L[facility] Results test status date ordered by attending specimen len e urea_nitrogen_blood unknown [id number] unknown unknown unk nown Erythrocytes_volume_in unknown 35751038 unknown unknown unknown _Blood_by_Automated_cou nt Erythrocyte_distributi unknown 46188205 unknown unknown unknown on_width_Ratio_by_Autom ated_count MCV_Entitic_volume_by_ unknown 64252151 unknown unknown unknown Automated_count MCH_Entitic_mass_by_Au unknown 54089812 unknown unknown unknown tomated_count Platelets_volume_in_Bl unknown 86699591 unknown unknown unknown ood_by_Automated_count Platelet_mean_volume_E unknown 40941717 unknown unknown unknown ntitic_volume_in_Blood_ by_Rees-Isabela neutrophil_count_blood unknown 00123157 unknown unknown unknown monocyte_count_blood unknown 52629459 unknown unknown un known lymphocyte_count_blood unknown 39916803 unknown unknown unknown Hemoglobin_Mass_volume unknown 61285517 unknown unknown unknown _in_Blood eosinophil_count_blood unknown 68548564 unknown unknown unknown Basophils_volume_in_Bl unknown 04258531 unknown unknown unknown ood_by_Manual_count leukocyte_count_blood unknown 83510307 unknown unknown u nknown erythrocyte_RBC_count unknown 09948160 unknown unknown u nknown Leukocytes_volume_in_B unknown 00809167 unknown unknown unknown lood_by_Automated_count Glomerular_Filtration_ unknown 37300762 unknown unknown unknown rate platelet_count unknown 78112047 unknown unknown unknown hemoglobin_blood unknown 79544889 unknown unknown unknow n hematocrit_blood unknown 94223659 unknown unknown unknow n potassium_blood unknown 73297995 unknown unknown unknown Glomerular_filtration_r unknown 12021033 unknown unknown unknown ate_1.73_sq_M.predicted _among_non-blacks_Volum e_Rate_Area_in_Serum_Pl asma_or_Blood_by_Creati nine-based_formula_MDRD _ Hematocrit_Volume_Frac unknown 64349738 unknown unknown unknown tion_of_Blood_by_Automa ted_count bilirubin_serum_total unknown 45736515 unknown unknown u nknown alanine_aminotransfera unknown 94090058 unknown unknown unknown se_SGPT_serum carbon_dioxide_serum_t unknown 53901653 unknown unknown unknown otal aspartate_aminotransfe unknown 63687223 unknown unknown unknown rase_SGOT_serum protein_total_serum unknown 09393827 unknown unknown unk nown blood_glucose unknown 83658842 unknown unknown unknown potassium_blood unknown 23255736 unknown unknown unknown mean_corpuscular_volum unknown 88535485 unknown unknown unknown e_RBC Urea_nitrogen_Mass_vol unknown 53302698 unknown unknown unknown ume_in_Serum_or_Plasma globulin_serum unknown 67634821 unknown unknown unknown alkaline_phosphatase_s unknown 07704840 unknown unknown unknown oc Sodium_Moles_volume_in unknown 98693477 unknown unknown unknown _Serum_or_Plasma Protein_Mass_volume_in unknown 07822357 unknown unknown unknown _Serum_or_Plasma eosinophil_count_blood unknown 46182002 unknown unknown unknown anion_gap_serum unknown 74747982 unknown unknown unknown mean_platelet_volume unknown 72252100 unknown unknown un known basophil_count_blood unknown 89743128 unknown unknown un known monocyte_count_blood unknown 08626686 unknown unknown un known lymphocyte_count_blood unknown 85447555 unknown unknown unknown neutrophil_count_blood unknown 50685948 unknown unknown unknown Glucose_Mass_volume_in unknown 18733278 unknown unknown unknown _Serum_or_Plasma Globulin_Mass_volume_i unknown 80206698 unknown unknown unknown n_Serum Creatinine_Mass_volume unknown 62149759 unknown unknown unknown _in_Serum_or_Plasma Chloride_Moles_volume_ unknown 71641778 unknown unknown unknown in_Serum_or_Plasma carbon_dioxide_serum_t unknown 14700807 unknown unknown unknown otal Calcium_Moles_volume_i unknown 71978143 unknown unknown unknown n_Serum_or_Plasma albumin_serum unknown 07618708 unknown unknown unknown Bilirubin.total_Mass_v unknown 67413322 unknown unknown unknown olume_in_Serum_or_Plasm a Aspartate_aminotransfe unknown 62834255 unknown unknown unknown rase_Enzymatic_activity _volume_in_Serum_or_Pla sma Anion_gap_4_in_Serum_o unknown 76798804 unknown unknown unknown r_Plasma creatinine_serum unknown 15108598 unknown unknown unknow n Alkaline_phosphatase_E unknown 07191094 unknown unknown unknown nzymatic_activity_volum e_in_Blood Albumin_Globulin_Mass_ unknown 07076483 unknown unknown unknown Ratio_in_Serum_or_Plasm a Albumin_Mass_volume_in unknown 14297656 unknown unknown unknown _Serum_or_Plasma Alanine_aminotransfera unknown 31540302 unknown unknown unknown se_Enzymatic_activity_v olume_in_Serum_or_Plasm a mean_corpuscular_hemog unknown 35658606 unknown unknown unknown lobin_concentration_rbc sodium_serum unknown 95766487 unknown unknown unknown albumin_globulin_ratio unknown 61719147 unknown unknown unknown _serum chloride_serum unknown 06170552 unknown unknown unknown calcium_serum unknown 78787421 unknown unknown unknown mean_corpuscular_hemog unknown 15643554 unknown unknown unknown lobin_RBC red_blood_cell_distrib unknown 72773813 unknown unknown unknown ution_width T unknown 34368224 unknown unknown unknown T unknown 50037645 unknown unknown unknown T unknown 47164302 unknown unknown unknown T unknown 64567217 unknown unknown unknown T unknown 87873743 unknown unknown unknown T unknown 24586444 unknown unknown unknown NEUTROPHILS_AUTO_ unknown 40541136 unknown unknown unkno wn T unknown 60738499 unknown unknown unknown T unknown 41420497 unknown unknown unknown T unknown 21478880 unknown unknown unknown MONOCYTES_AUTO_ unknown 22839145 unknown unknown unknown T unknown 87661016 unknown unknown unknown T unknown 81896514 unknown unknown unknown T unknown 15857791 unknown unknown unknown T unknown 66296376 unknown unknown unknown LYMPHOCYTES_AUTO_ unknown 69365602 unknown unknown unkno wn T unknown 45246305 unknown unknown unknown T unknown 74522897 unknown unknown unknown T unknown 80885307 unknown unknown unknown T unknown 78731286 unknown unknown unknown T unknown 00896890 unknown unknown unknown T unknown 12842801 unknown unknown unknown T unknown 90306016 unknown unknown unknown GFR_-_MDRD unknown 23202931 unknown unknown unknown T unknown 16643152 unknown unknown unknown EOSINOPHILS_AUTO_ unknown 35989583 unknown unknown unkno wn T unknown 22353470 unknown unknown unknown T unknown 87720979 unknown unknown unknown T unknown 89021780 unknown unknown unknown T unknown 33676038 unknown unknown unknown T unknown 79740230 unknown unknown unknown T unknown 19654752 unknown unknown unknown BILIRUBIN_TOTAL unknown 01020454 unknown unknown unknown BASOPHILS_AUTO_ unknown 58178044 unknown unknown unknown T unknown 56244573 unknown unknown unknown T unknown 04570192 unknown unknown unknown T unknown 54156739 unknown unknown unknown T unknown 54778520 unknown unknown unknown ALT_ALANINE_AMINOTRANS unknown 74966823 unknown unknown unknown FERASE ALKALINE_PHOSPHATASE unknown 98043980 unknown unknown un known T unknown 67667733 unknown unknown unknown T unknown 42003642 unknown unknown unknown ALBUMIN_GLOBULIN_RATIO unknown 35374359 unknown unknown unknown facility observation status value [...] Care & edicted_among Ancillary _non-blacks_V Services olume_Rate_Ar Lb ea_in_Serum_P lasma_or_Bloo d_by_Creatini ne-based_form ula_MDRD_ Walk-In Hematocrit_V [...] Walk-In T unknown 11.9 unknown WBC unknown [facility] X10 Primary 3/UL Care & Ancillary Services Lb Walk-In T unknown 0.6 unknown mg/dL TOTAL_BI unknown u [facility] LI Primary Care & Ancillary Services Lb Walk-In T unknown 14.6 unknown % RDW unknown [facility] Primary Care & Ancillary Services Lb Walk-In T unknown 4.91 unknown RBC unknown [facility] 10 6/UL Primary Care & Ancillary Services Lb Walk-In T unknown 8.0 unknown g/dL PRO_TOTA unknown u [facility] L Primary Care & Ancillary Services Lb Walk[facility]In T unknown 307 10 unknown PLT unknown [facility] 3/UL Primary Care & Ancillary Services Lb Walk-In NEUTROPHILS_ unknown 8.1 10 unknown NE_ unknow n unknown Clinic AUTO_ 3/UL Primary Care & Ancillary Services Lb Walk-In T unknown 8.1 10 unknown NEUT_AUT unknown u [facility] 3/UL O_ Primary Care & Ancillary Services Lb Walk-In T unknown 134 unknown mmol/L NA unknown [facility] Primary Care & Ancillary Services Lb Walk-In T unknown 12.7 unknown fL MPV unknown [facility] Primary Care & Ancillary Services Lb Walk[facility]In MONOCYTES_AU unknown 1.1 10 unknown MO_ unknow n unknown Clinic TO_ 3/UL Primary Care & Ancillary Services Lb Walk-In T unknown 1.1 10 unknown MONO_AUT unknown u [facility] 3/UL O_ Primary Care & Ancillary Services Lb Walk-In T unknown 90.6 unknown fL MCV unknown [facility] Primary Care & Ancillary Services Lb Walk-In T unknown 31.2 unknown g/dL MCHC unknown [facility] Primary Care & Ancillary Services Lb Walk[facility]In T unknown 28.3 unknown pg MCH unknown [facility] Primary Care & Ancillary Services Lb Walk-In LYMPHOCYTES_ unknown 2.5 10 unknown LY_ unknow n unknown Clinic AUTO_ 3/UL Primary Care & Ancillary Services Lb Walk-In T unknown 2.5 10 unknown LYMPH_AU unknown u [facility] 3/UL TO_ Primary Care & Ancillary Services Lb Walk-In T unknown 4.7 unknown meq/L K unknown [facility] Primary Care & Ancillary Services Lb Walk-In T unknown 13.9 unknown g/dL HGB unknown [facility] Primary Care & Ancillary Services Lb Walk-In T unknown 44.5 unknown % HCT unknown [facility] Primary Care & Ancillary Services Lb Walk-In T unknown 84 unknown mg/dL GLU unknown [facility] Primary Care & Ancillary Services Lb Walk-In T unknown 3.6 unknown GLOB unknown [facility] Primary Care & Ancillary Services Lb Walk-In T unknown 46 unknown mL/min GFR_-_MD unknown u [facility] RD Primary Care & Ancillary Services Lb Walk-In GFR_-_MDRD unknown 46 unknown mL/min GFR unknown unknown Clinic Primary Care & Ancillary Services Lb Walk-In T unknown 9.0 unknown GAP unknown [facility] Primary Care & Ancillary Services Lb Walk-In EOSINOPHILS_ unknown 0.1 10 unknown EO_ unknow n unknown Clinic AUTO_ 3/UL Primary Care & Ancillary Services Lb Walk-In T unknown 0.1 10 unknown EOS_AUTO unknown u [facility] 3/UL _ Primary Care & Ancillary Services Lb Walk-In T unknown 1.2 unknown mg/dL CREAT unknown [facility] Primary Care & Ancillary Services Lb Walk-In T unknown 24 unknown mmol/L CO2 unknown [facility] Primary Care & Ancillary Services Lb Walk-In T unknown 101 unknown mmol/L CL unknown [facility] Primary Care & Ancillary Services Lb Walk-In T unknown 9.1 unknown mg/dL CA unknown [facility] Primary Care & Ancillary Services Lb Walk-In T unknown 29 unknown mg/dL BUN unknown [facility] Primary Care & Ancillary Services Lb Walk-In [...] T unknown 1.2 unknown A_G_RATI unknown u [facility] O Primary Care & Ancillary Services Lb Walk-In T unknown 22 unknown U/L AST unknown unk [facility] Primary Care & Ancillary Services Lb Walk-In T unknown 21 unknown U/L ALT_SGPT unknown u [facility] _ Primary Care & Ancillary Services Lb Walk-In ALT_ALANINE_ unknown 21 unknown U/L ALT unknow n unknown Clinic AMINOTRANSFER Primary ASE Care & Ancillary Services Lb Walk-In ALKALINE_PHO unknown 68 unknown U/L ALP unknow n unknown Clinic SPHATASE Primary Care & Ancillary Services Lb Walk-In T unknown 68 unknown U/L ALK_PHOS unknown u [facility] Primary Care & Ancillary Services Lb Walk-In T unknown 4.4 unknown g/dL ALB unknown unk [facility] Primary Care & Ancillary Services Lb Walk-In [...]
[2020-07-14] MEDS ORDERED: SODIUM CHLORIDE 0.9% 1,000 ML IV STA (13:58)
[2020-07-14] MEDS ORDERED: ONDANSETRON 4 MG/2 ML VIAL IVP STA (13:59)
--- NOTE | 2020-07-14 14:00 | ED Physician Documentation ---
History of Present Illness - Stated complaint Stated Complaint: NVD - Chief complaint Chief Complaint: Abd Pain - History obtained from History obtained from: Patient - History of Present Illness Timing: Today Pain level max: 0 Pain level now: 0 Improved by: nothing Worsened by: nothing - Additonal information Additional information: Patient is a 60-year-old female who was sent from the walk-in clinic today. She states that she is being treated for cellulitis of the right lower extremity. She states she has had nausea for the past 2 to 3 weeks. Has had diarrhea once per day for the past 2 weeks. She was started on Bactrim a few days ago. Her recent blood work showed a creatinine of 1.2. She is unsure what her normal creatinine is. They sent her here for possible renal insufficiency. Her blood work was yesterday. Patient states that her cellulitis seems to be improving. Her wound culture shows MSSA. Review of Systems Ten Systems: 10 systems reviewed and negative Constitutional: denies: Fever, Chills Cardiac: denies: Chest pain / pressure Respiratory: denies: Cough GI: reports: Nausea. denies: Abdominal Pain, Vomiting Musculoskeletal: denies: Neck pain, Back pain Neurologic: denies: Headache PD PAST MEDICAL HISTORY - Past Medical History Past Medical History: Yes Cardiovascular: Hypertension, High cholesterol - Present Medications Home Medications: Ambulatory Orders Medication Instructions Recorded Confirmed Lisinopril [Zestril] 20 mg PO DAILY 07/14/20 07/14/20 Ondansetron Odt [Zofran] 4 mg TL Q6H PRN #10 tablet 07/14/20 SULFAM/TRIM 800/160 Prepack 2 1 tab ORAL BID 07/14/20 07/14/20 [BACTRIM DS 800/160 Prepack 2] cephALEXin [Keflex] 500 mg PO Q6H #28 cap 07/14/20 metFORMIN [Glucophage] 500 mg PO BIDWM 07/14/20 07/14/20 - Allergies Allergies/Adverse Reactions: Allergies Allergy/AdvReac Type Severity Reaction Status Date / Time No Known Drug Allergies Allergy Verified 07/14/20 13:38 PD ED PE NORMAL - Vitals Vital signs reviewed: Yes - General General: Alert and oriented X 3, No acute distress - HEENT HEENT: Moist mucous membranes - Neck Neck: Supple, no meningeal sign - Cardiac Cardiac: RRR, Strong equal pulses - Respiratory Respiratory: No respiratory distress, Clear bilaterally - Abdomen Abdomen: Soft, Non tender, Non distended - Derm Derm: Warm and dry - Extremities Extremities: No edema, No calf tenderness / cord, Other (Venous stasis to the right lower extremity, no signs of cellulitis) - Neuro Neuro: Alert and oriented X 3 - Psych Psych: Normal mood, Normal affect Results - Vitals Vitals: Vital Signs - 24 hr 07/14/20 07/14/20 07/14/20 13:40 13:58 14:51 Temperature 36 C L 37.1 C Heart Rate 79 71 72 Respiratory 18 16 16 Rate Blood Pressure 111/79 135/68 H 101/85 H O2 Saturation 98 98 97 07/14/20 15:38 Temperature 36.5 C Heart Rate 71 Respiratory 16 Rate Blood Pressure 105/72 O2 Saturation 100 Oxygen O2 Source Room air PD MEDICAL DECISION MAKING - ED course Complexity details: reviewed old records, considered differential, d/w patient ED course: Reviewed her recent blood work. Given IV fluids. As she is on lisinopril, we will change from the Bactrim as this should help her renal insufficiency. Her wound culture shows MSSA. We will place on Keflex. We will have her follow-up with her doctor for repeat blood work next week. Patient counseled regarding signs and symptoms for which I believe and urgent re-evaluation would be necessary. Patient with good understanding of and agreement to plan and is comfortable going home at this time This document was made in part using voice recognition software. While efforts are made to proofread this document, sound alike and grammatical errors may occur. Departure - Departure Disposition: 01 Home, Self Care Clinical Impression: Acute kidney injury Cellulitis Qualifiers: Site of cellulitis: unspecified site Qualified Code(s): L03.90 - Cellulitis, unspecified Condition: Good Instructions: ED Infec Skin Cellulitis Follow-Up: your,doctor in 1 week [Other] Prescriptions: cephALEXin [Keflex] 500 mg PO Q6H #28 cap Ondansetron Odt [Zofran] 4 mg TL Q6H PRN #10 tablet PRN Reason: Nausea / Vomiting Comments: We will change her antibiotics from Bactrim to Keflex. Make sure you are dr inking plenty of water. Follow-up with your doctor for further care. Stop the Bactrim. We have also prescribed you Zofran for your nausea. Discharge Date/Time: 07/14/20 15:43
[2020-07-14 15:39] VITALS: BP 105/72
== END 2020-07-14 15:43 | disposition home or self-care (01) ==
LOC: ED 13:32
DX: N17.9 Acute kidney failure, unspecified (principal); L03.115 Cellulitis of right lower limb; B95.61 Methicillin susceptible Staphylococcus aureus infection as the cause of diseases classified elsewhere; I87.8 Other specified disorders of veins; R11.0 Nausea; R19.7 Diarrhea, unspecified; I10 Essential (primary) hypertension
CPT/HCPCS: 96374; 99284